=== PATIENT | female | born 1930 | race African-American/Black ===

== ENCOUNTER 2020-11-02 12:09 | Inpatient (IN) | payer MEDICARE, BC ==
[~2020-11-02] VITALS: Ht 160 cm; Wt 78.5 kg
[2020-11-02 13:10] LABS: BASOPHILS % 0.7 % (0.0-2.0); EOSINOPHILS % 2.2 % (0.0-5.0); HEMATOCRIT. 36.9 % (36.0-48.0); HEMOGLOBIN. 12.2 g/dL (12.0-16.0); LYMPHOCYTES % 25.7 % (20.0-50.0); MEAN CORPUSCULAR HEMOGLOBIN 29.2 pg (28.0-32.0); MEAN CORPUSCULAR VOLUME 88.7 fL (81.0-99.0); MEAN PLATELET VOLUME 7.8 fl (7.4-10.4); MONOCYTES % 11.1 % (2.0-8.0); NEUTROPHILS % 60.3 % (40.0-76.0); PLATELET 244 x1000/uL (130-400); RED BLOOD CELL COUNT 4.17 mill/uL (4.2-5.4); RED CELL DISTRIBUTION WIDTH 13.6 % (11.6-14.6)
[2020-11-02 13:14] LABS: CHLORIDE 106 mEq/L (98-107)
[2020-11-02 13:18] LABS: ETHANOL BLOOD < 10 mg/dL
[2020-11-02 13:21] LABS: LDL CHOLESTEROL 180 mg/dL (5-100)
[2020-11-02 13:32] LABS: PROTHROMBIN TIME 10.5 sec (9.6-11.0)
[2020-11-02 14:13] LABS: CLARITY URINE CLEAR (CLEAR); COLOR URINE YELLOW (YELLOW); KETONES URINE NEGATIVE (NEGATIVE); LEUKOCYTE ESTERASE URINE NEGATIVE (NEGATIVE); NITRITE URINE NEGATIVE (NEGATIVE); OCCULT BLOOD URINE NEGATIVE (NEGATIVE); PH URINE 5.5 (4.5-8.0); PROTEIN URINE NEGATIVE (NEGATIVE); SPECIFIC GRAVITY URINE 1.015 (1.005-1.030); UROBILINOGEN URINE 0.2 E.U./dL (0.2-1.0)
[2020-11-02 14:37] LABS: *BARBITURATES SCREEN URINE NEGATIVE (NEGATIVE); *BENZODIAZEPINES SCREEN URINE NEGATIVE (NEGATIVE); *COCAINE SCREEN URINE NEGATIVE (NEGATIVE)
[2020-11-02 14:38] LABS: *AMPHETAMINES SCREEN URINE NEGATIVE (NEGATIVE); CANNABINOID URINE SCREEN NEGATIVE (NEGATIVE); METHADONE URINE SCREEN NEGATIVE (NEGATIVE); OPIATES URINE SCREEN NEGATIVE (NEGATIVE); PHENCYCLIDINE URINE SCREEN NEGATIVE (NEGATIVE)
[2020-11-02] MEDS ORDERED: IOHEXOL-350 100 ML BOTTLE ONE (14:40)
[2020-11-02 21:05] VITALS: BP 157/87
[2020-11-02] MEDS ORDERED: CLONIDINE 0.1MG TABLET PO PRN (22:30)
[2020-11-02] MEDS ORDERED: ACETAMINOPHEN 325MG TABLET PO PRN (22:30)
[2020-11-02] MEDS ORDERED: ASPI-1497 PO (23:27)
[2020-11-02] MEDS ORDERED: MICAR4 PO (23:27)
[2020-11-02] MEDS ORDERED: NON FORMULARY PATIENT HOME MED XX SCH (23:30)
[2020-11-03] VITALS: BP 140/66
[2020-11-03 04:00] VITALS: BP 147/71
[2020-11-03 07:01] LABS: BASOPHILS % 0.9 % (0.0-2.0); EOSINOPHILS % 3.4 % (0.0-5.0); HEMATOCRIT. 35.6 % (36.0-48.0); HEMOGLOBIN. 11.8 g/dL (12.0-16.0); LYMPHOCYTES % 22.7 % (20.0-50.0); MEAN CORPUSCULAR HEMOGLOBIN 29.7 pg (28.0-32.0); MEAN CORPUSCULAR VOLUME 89.7 fL (81.0-99.0); MONOCYTES % 13.8 % (2.0-8.0); NEUTROPHILS % 59.2 % (40.0-76.0); PLATELET 239 x1000/uL (130-400); RED BLOOD CELL COUNT 3.97 mill/uL (4.2-5.4); RED CELL DISTRIBUTION WIDTH 13.6 % (11.6-14.6)
[2020-11-03 07:17] LABS: CHLORIDE 107 mEq/L (98-107)
[2020-11-03 07:23] LABS: LDL CHOLESTEROL 174 mg/dL (5-100)
[2020-11-03 07:25] LABS: HDL CHOLESTEROL 90 mg/dL (40-59)
[2020-11-03 08:00] VITALS: BP 145/65
[2020-11-03] MEDS ORDERED: HEPARIN 5000 UNITS/ML VIAL SUBCUT SCH (09:00)
[2020-11-03] MEDS ORDERED: ASPIRIN 81MG EC TABLET PO SCH (09:00)
[2020-11-03] MEDS ORDERED: LOSARTAN POTASSIUM 50 MG TABLET PO SCH (09:00)
[2020-11-03] MEDS ORDERED: SODIUM CHLORIDE 0.9% 500 ML IV ONE (10:45)
[2020-11-03] MEDS ORDERED: CLOPIDOGREL 75MG TABLET PO SCH (10:45)
[2020-11-03 12:29] VITALS: BP 132/63
[2020-11-03] MEDS ORDERED: GADOTERATE MEGLUMINE 5 MMOL/10 ML VIAL IV ONE (12:30)
[2020-11-03 14:49] LABS: FOLIC ACID (FOLATE) SERUM 18.1 ng/mL (>5.38)
[2020-11-03 16:26] VITALS: BP 137/65
[2020-11-03] MEDS ORDERED: FISH OIL/OMEGA-3 FATTY ACIDS 1000MG CAPSULE PO SCH (16:30)
[2020-11-03] MEDS ORDERED: CHOLESTYRAMINE/SUCROSE 4G POWDER PACKET PO SCH (17:50)
[2020-11-03] MEDS ORDERED: FISH PO (17:56)
[2020-11-03] MEDS ORDERED: CLOP75TA15 PO (17:56)
[2020-11-03] MEDS ORDERED: CHOL4PAC5 PO (17:56)
[2020-11-03 18:49] VITALS: BP 137/65
== END 2020-11-03 20:05 | disposition home or self-care (01) | DRG 69 ==
LOC: ER 12:15 → 6WST 15:50 → EDBEDREQSVC 15:52 → EDBEDREQTM 15:52 → EDBEDREQ 15:52 → ENRESERV 20:14
PROVIDERS: ADMIT Internal Medicine; ATTEND Internal Medicine
DX: G45.9 Transient cerebral ischemic attack, unspecified (principal); I63.81 Other cerebral infarction due to occlusion or stenosis of small artery; E78.5 Hyperlipidemia, unspecified; E78.00 Pure hypercholesterolemia, unspecified; D32.0 Benign neoplasm of cerebral meninges; I10 Essential (primary) hypertension; D72.821 Monocytosis (symptomatic); I27.21 Secondary pulmonary arterial hypertension; Z91.013 Allergy to seafood; I67.82 Cerebral ischemia
CPT/HCPCS: 36415; 70496; 70549; 70551; 71045; 80053; 80061; 80305; 80320; 81003; 82607; 82746; 82962; 83036; 83721; 84443; 84484; 85025; 93005; 93306; 97166; 99285; A9577; J1644; J7040; Q9967; G0480